=== PATIENT | male | born 1940 | race Caucasian/White ===

== ENCOUNTER 2023-06-19 06:15 | Emergency (ER) | payer BC ==
[2023-06-19 06:24] VITALS: BP_SYST 93; PULSE 116; RESP 16; TEMP 96.6; O2SAT 96
[2023-06-19] MEDS ORDERED: NACL 0.9% 2,000 ML IV ONE (07:15)
[2023-06-19 07:28] LABS: BASOPHILS % (AUTO) 0.3 % (0.0-2.0); EOSINOPHILS # (AUTO) 0.4 K/uL (0.0-0.4); EOSINOPHILS % (AUTO) 4.7 % (0.0-4.0); HEMATOCRIT 48.6 % (36-54); HEMOGLOBIN 16.2 g/dL (14.0-18.0); LYMPHOCYTES # (AUTO) 1.6 K/uL (1.0-5.5); LYMPHOCYTES % (AUTO) 17.4 % (20.5-51.5); MEAN CORPUSCULAR HEMOGLOBIN 31 pg (27-31); MEAN CORPUSCULAR HGB CONC 33 % (32-36); MEAN CORPUSCULAR VOLUME 94 fL (79.0-98.0); MONOCYTES # (AUTO) 0.9 K/uL (0.0-1.0); MONOCYTES % (AUTO) 9.5 % (1.7-9.3); NEUTROPHILS # (AUTO) 6.3 K/uL (1.8-7.7); NEUTROPHILS % (AUTO) 68.1 % (40.0-70.0); PLATELET COUNT (AUTO) 118 K/uL (130-430); RED BLOOD CELL COUNT(AUTO) 5.17 MIL/uL (4.2-6.2); RED CELL DISTRIBUTION WIDTH 14.9 % (9.0-15.0); WHITE BLOOD COUNT (AUTO) 9.3 K/uL (4.8-10.8)
[2023-06-19 07:47] LABS: ANION GAP 5 (5-15); CALCIUM 9.7 mg/dL (8.4-11.0); CARBON DIOXIDE 33 mmol/L (23-29); CHLORIDE 100 mmol/L (98-107); CREATININE 1.48 mg/dL (0.55-1.30); GLUCOSE 168 mg/dL (74-106); POTASSIUM 4.5 mmol/L (3.5-5.1); SODIUM SERUM 138 mmol/L (136-145); UREA NITROGEN, BLOOD 68 mg/dL (8-21)
[2023-06-19 07:54] LABS: ALANINE AMINOTRANSFERASE 12 U/L (12-78); ALBUMIN 3.6 g/dL (3.4-4.8); ASPARTATE AMINOTRANSFERASE 22 U/L (10-37); TOTAL BILIRUBIN 1.2 mg/dL (0.0-1.0); TOTAL PROTEIN, SERUM 7.7 g/dL (6.4-8.3)
[2023-06-19 09:23] LABS: CLARITY/URINE SLIGHTLY HAZY (CLEAR); COLOR,URINE Y (YELLOW); GLUCOSE,URINE >=1000 (NEGATIVE); PH,URINE 5.5 (5.0-8.0); PROTEIN URINE NEGATIVE (NEGATIVE)
[2023-06-19 09:24] LABS: BILIRUBIN,URINE NEGATIVE (NEGATIVE); BLOOD, URINE TRACE (NEGATIVE); KETONES,URINE TRACE (NEGATIVE); LEUKOCYTE ESTERASE ,URINE NEGATIVE (NEGATIVE); NITRITE, URINE NEGATIVE (NEGATIVE); UROBILINOGEN,URINE 0.2 (0.2-1.0)
[2023-06-19 09:31] LABS: BACTERIA,URINE RARE /HPF (None Seen); HYALINE CASTS, URINE 0-10 /LPF (None Seen); RBC,URINE 0-3 /HPF (0-3); WBC,URINE NONE SEEN /HPF (0-3)
[2023-06-19 12:00] VITALS: BP_SYST 147; PULSE 98; RESP 16; TEMP 97.1; O2SAT 97
== END 2023-06-19 12:00 | disposition short-term general hospital (02) ==
LOC: SED 06:15
DX: I62.00 Nontraumatic subdural hemorrhage, unspecified (principal); R41.82 Altered mental status, unspecified; E86.0 Dehydration; J93.9 Pneumothorax, unspecified; J98.2 Interstitial emphysema; N28.9 Disorder of kidney and ureter, unspecified; Z79.899 Other long term (current) drug therapy
CPT/HCPCS: 99291; 70450; 96360; 80053; 81000; 85025; 84484; 36415; 93005; 71045; 71250; 72125; 76376; J7030